=== PATIENT | male | born 1960 | race Caucasian/White ===

== ENCOUNTER 2018-04-24 15:51 | Emergency (ER) | payer SELFPAY ==
[2018-04-24 16:30] LABS: BASO % 0.4 % (0-6); EOS % 3.4 % (0-6); GRAN % 70.8 % (47-80); HEMATOCRIT 45.8 % (42.0-52.0); HEMOGLOBIN 15.5 gm/dl (14.0-18.0); LYMPH % 16.8 % (16-45); MEAN CELL VOLUME 86.4 fl (81-97); MEAN CORPUSCULAR HEMOGLOBIN 29.2 pg (27-33); MEAN CORPUSCULAR HGB CONC 33.8 g/dl (32-36); MONO % 8.6 % (0-9); PLATELET COUNT 366 K/uL (130-400); RED CELL DISTRIBUTION WIDTH 13.2 % (11.5-14.5)
[2018-04-24 16:38] LABS: BLOOD UREA NITROGEN 18 mg/dL (6-20)
[2018-04-24 16:39] LABS: CREATININE 0.8 mg/dL (0.7-1.2); EST GLOMERULAR FILTRATION RATE > 60 mL/min
[2018-04-24 16:41] LABS: GLUCOSE,RANDOM 146 mg/dL (74-109)
[2018-04-24 17:07] LABS: STREP A SCREEN NEGATIVE (NEGATIVE)
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
[2018-04-24 17:22] LABS: INFLUENZA A NEGATIVE (NEGATIVE); INFLUENZA B NEGATIVE (NEGATIVE)
[2018-04-24] MEDS ORDERED: AMOX TR/POT CLAV. 500MG/125MG TABLET PO ONE (19:06)
[2018-04-24] MEDS ORDERED: PREDNISONE 20 MG TAB PO ONE (19:07)
--- NOTE | 2018-04-25 13:54 | CT SCAN REPORT ---
EXAM: CT OF THE CHEST WITHOUT CONTRAST HISTORY: COUGH. TECHNIQUE: Noncontrast CT images of the chest were obtained. FINDINGS: The lungs are clear without evidence of infiltrate or soft tissue mass. There are calcified granulomas in the right upper lobe with calcified hilar mediastinal lymph nodes. There is no evidence of mediastinal adenopathy, cardiac enlargement, pericardial or pleural effusion. Images of the upper abdomen demonstrate granulomas in the liver and spleen. There is an exophytic cyst from the upper pole of the left kidney. IMPRESSION: ESSENTIALLY NEGATIVE CT SCAN OF THE CHEST. OLD GRANULOMATOUS DISEASE. JOB NUMBER: [id number] [facility]
--- NOTE | 2018-04-25 13:55 | RADIOLOGY REPORT ---
EXAM: CHEST, TWO VIEWS HISTORY: COUGH. TECHNIQUE: Two views of the chest were obtained. FINDINGS: The heart and pulmonary vessels are normal. No infiltrate or effusion is seen. There is a right upper lobe granuloma. IMPRESSION: NO ACUTE PROCESS. JOB NUMBER: [id number] [facility]TDD
== END 2018-04-24 19:24 | disposition home or self-care (01) ==
LOC: ER 15:51
DX: J45.40 Moderate persistent asthma, uncomplicated (principal); R07.9 Chest pain, unspecified; R05 Cough; M54.2 Cervicalgia; I10 Essential (primary) hypertension; Z87.891 Personal history of nicotine dependence
CPT/HCPCS: 71046; 71250; 80048; 85025; 85379; 87400; 87880; 99283; 99284; J7512

== ENCOUNTER 2018-11-15 14:28 | Emergency (ER) | payer BC ==
[2018-11-15] MEDS ORDERED: ASPIRIN 81 MG CHEWABLE TABLET PO ONE (14:40)
[2018-11-15] MEDS ORDERED: 0.9 % SODIUM CHLORIDE 1000ML 1,000 ML IV PRN (14:40)
[2018-11-15 14:48] LABS: ABSOLUTE NEUTROPHIL COUNT 5.18; BASO % 0.4 % (0-6); EOS % 6.1 % (0-6); GRAN % 67.4 % (47-80); HEMATOCRIT 42.1 % (42.0-52.0); HEMOGLOBIN 13.9 gm/dl (14.0-18.0); LYMPH % 17.8 % (16-45); MEAN CELL VOLUME 86.4 fl (81-97); MEAN CORPUSCULAR HEMOGLOBIN 28.5 pg (27-33); MEAN PLATELET VOLUME 8.4 fl (7.4-10.4); MONO % 8.3 % (0-9); PLATELET COUNT 338 K/uL (130-400); RED BLOOD COUNT 4.87 M/uL (4.40-5.70); RED CELL DISTRIBUTION WIDTH 13.1 % (11.5-14.5); WHITE BLOOD COUNT W/O DIFF 7.7 K/uL (4.2-12.2)
[2018-11-15 15:02] LABS: BLOOD UREA NITROGEN 12 mg/dL (6-20); CREATININE 0.7 mg/dL (0.7-1.2); EST GLOMERULAR FILTRATION RATE > 60 mL/min
[2018-11-15 15:05] LABS: GLUCOSE,RANDOM 109 mg/dL (74-109)
--- NOTE | 2018-11-15 16:42 | Emergency Department Record ---
History of Present Illness - General Chief Complaint: Chest Pain Stated Complaint: CHEST PAIN Time Seen by Provider: 11/15/18 14:40 Source: Patient, RN notes reviewed Mode of Arrival: Ambulatory - History of Present Illness Initial Comments: chest pain and left sided numbness Onset: Awoke with symptoms Pain Location: Left chest Pain Radiation: LUE, Jaw/teeth Quality: Tightness Improves With: Nothing Worsens With: Nothing Treatments Prior to Arrival: None - Related Data Previous Rx's Medication Instructions Recorded Albuterol Sulfate [Proair Hfa] 1 - 2 puff IH .EVERY 4-6 HOURS PRN 04/24/18 #1 inhaler Allergies Allergy/AdvReac Type Severity Reaction Status Date / Time No Known Drug Allergies Allergy Verified 11/15/18 14:35 Travel Screening - Travel/Exposure Within Last 30 Days Have you traveled within the last 30 days?: No Review of Systems Reviewed: No additional complaints except as noted below Constitutional: Reports: As per HPI. Denies: Chills, Fever, Malaise, Night sweats, Weakness, Weight change Eyes: Reports: As per HPI. Denies: Eye discharge, Eye pain, Photophobia, Vision change ENT: Reports: As per HPI. Denies: Congestion, Dental pain, Ear pain, Epistaxis, Hearing loss, Throat pain Respiratory: Reports: As per HPI. Denies: Cough, Dyspnea, Hemoptysis, Stridor, Wheezes Cardiovascular: Reports: As per HPI, Chest pain. Denies: Arrhythmia, Dyspnea on exertion, Edema, Murmurs, Orthopnea, Palpitations, Paroxysmal nocturnal dyspnea, Rheumatic Fever, Syncope Endocrine: Reports: As per HPI. Denies: Fatigue, Heat or cold intolerance, Polydipsia, Polyuria Gastrointestinal: Reports: As per HPI. Denies: Abdominal pain, Constipation, Diarrhea, Hematemesis, Hematochezia, Melena, Nausea, Vomiting Genitourinary: Reports: As per HPI. Denies: Dysuria, Frequency, Hematuria, Incontinence, Retention, Testicular pain, Testicular mass, Urgency Musculoskeletal: Reports: As per HPI. Denies: Arthralgia, Back pain, Gout, Joint swelling, Myalgia, Neck pain Skin: Reports: As per HPI. Denies: Bruising, Change in color, Change in hair/nails, Lesions, Pruritus, Rash Neurological: Reports: As per HPI, Numbness (left arm). Denies: Abnormal gait, Confusion, Headache, Paresthesias, Seizure, Tingling, Tremors, Vertigo, Weakness Psychiatric: Reports: As per HPI. Denies: Anxiety, Auditory hallucinations, Depression, Homicidal thoughts, Suicidal thoughts, Visual hallucinations Hematological/Lymphatic: Reports: As per HPI. Denies: Anemia, Blood Clots, Easy bleeding, Easy bruising, Swollen glands Past Medical History - SOCIAL HISTORY Smoking Status: Former smoker Alcohol Use: None Drug Use: None - RESPIRATORY Hx Respiratory Disorders: Yes Hx Bronchitis: Yes - CARDIOVASCULAR Hx Cardio Disorders: Yes Hx Chest Pain: Yes Hx Hypertension: Yes - NEURO Hx Neuro Disorders: Yes Hx Dizziness: Yes - GI Hx GI Disorders: No - Hx Genitourinary Disorders: No - ENDOCRINE Hx Endocrine Disorders: No Hx Diabetes: No Hx Thyroid Disease: No - MUSCULOSKELETAL Hx Musculoskeletal Disorders: Yes Hx Arthritis: Yes - PSYCH Hx Psych Problems: No - HEMATOLOGY/ONCOLOGY Hx Hematology/Oncology Disorders: No Family Medical History Any Significant Family History?: No Family Hx Comment (NOT TO BE USED IN PLACE OF ITEMS BELOW): pt denies clotting issues with family Physical Exam - General General Appearance: Alert, Oriented x3, Cooperative, No acute distress - Head Head exam: Normal inspection - Eye Eye exam: Normal appearance, PERRL Pupils: Normal accommodation - ENT ENT exam: Normal exam, Mucous membranes moist, Normal external ear exam, Normal orophraynx, TM's normal bilaterally Ear exam: Normal external inspection. negative: External canal tenderness Nasal Exam: Normal inspection. negative: Discharge, Sinus tenderness Mouth exam: Normal external inspection, Tongue normal Teeth exam: Normal inspection. negative: Dental caries Throat exam: Normal inspection. negative: Tonsillar erythema, Tonsillar exudate - Neck Neck exam: Normal inspection, Full ROM. negative: Tenderness - Respiratory Respiratory exam: Normal lung sounds bilaterally. negative: Respiratory distress - Cardiovascular Cardiovascular Exam: Regular rate, Normal rhythm, Normal heart sounds - GI/Abdominal GI/Abdominal exam: Soft, Normal bowel sounds. negative: Tenderness - Rectal Rectal exam: Deferred - exam: Deferred - Extremities Extremities exam: Normal inspection, Full ROM, Normal capillary refill. negative: Tenderness - Back Back exam: Reports: Normal inspection, Full ROM. 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 11/15/18 17:16 Reevaluation #2: numbness is gone in the arm and some residual numbness in the fingers 11/15/18 17:22 Reevaluation #3: discuussed case with Dr Robles and he said he would see him at 9 am at his office in [place] to do a stress test [address] [facility], phone number [phone]. Return to ED more problems before than. 11/15/18 17:42 Reevaluation #4: second trop neg 11/15/18 17:53 Medical Decision Making - Data Complexity MDM Data: Labs Ordered and/or Reviewed (trop t neg first one ), X-Ray Ordered and/or Reviewed (CThead negative), EKG Ordered and/or Reviewed (EKG NSR ST up I,AVL T wave down in #, avf) - Lab Data Result diagrams: 11/15/18 14:30 11/15/18 14:30 Lab Results 11/15/18 11/15/18 11/15/18 Range/Units 14:30 14:30 14:30 WBC 7.7 (4.2-12.2) K/uL RBC 4.87 (4.40-5.70) M/uL Hgb 13.9 L (14.0-18.0) gm/dl Hct 42.1 (42.0-52.0) % MCV 86.4 (81-97) fl MCH 28.5 (27-33) pg MCHC 33.0 (32-36) g/dl RDW 13.1 (11.5-14.5) % Plt Count 338 (130-400) K/uL MPV 8.4 (7.4-10.4) fl Gran % 67.4 (47-80) % Lymphocytes % 17.8 (16-45) % Monocytes % 8.3 (0-9) % Eosinophils % 6.1 H (0-6) % Basophils % 0.4 (0-6) % Absolute Neutrophils 5.18 APTT 26.2 (24.5-39.1) SECONDS Sodium 141 (136-145) mmol/L Potassium 4.2 (3.4-4.5) mmol/L Chloride 103 (98-107) mmol/L Carbon Dioxide 26.0 (22-29) mmol/L Anion Gap 12.0 (7-16) BUN 12 (6-20) mg/dL Creatinine 0.7 (0.7-1.2) mg/dL Estimated GFR > 60 mL/min Random Glucose 109 (74-109) mg/dL Calcium 9.5 (8.6-10.0) mg/dL Troponin T < 0.010 (0-0.010) ng/mL Disposition Clinical Impression: Chest pain Qualifiers: Chest pain type: chest pain due to myocardial ischemia Ischemic chest pain type: unspecified angina pectoris type Qualified Code(s): I25.9 - Chronic ischemic heart disease, unspecified Disposition: Against Medical Advice Condition: (1) Good Instructions: Chest Pain (ED) Additional Instructions: Dr. Dacosta with [facility] [address] [place] [address] #[phone] take an aspirin a day Forms: Patient Portal Access Time of Disposition: 17:52 Quality - Quality Measures Quality Measures: N/A - Blood Pressure Screening Does Patient Have Any of the Following: No Blood Pressure Classification: Hypertensive Reading Systolic Measurement: 150 Diastolic Measurement: 78 Screening for High Blood Pressure: < First Hypertensive BP, F/U Documented > [G8950] First Hypertensive Follow-up Interventions: Referral to alternative/primary care provider.
--- NOTE | 2018-11-16 21:49 | RADIOLOGY REPORT ---
EXAM: CHEST 2 VIEWS HISTORY: NUMBNESS LEFT SIDE OF BODY AND CHEST PAIN. TECHNIQUE: PA and lateral views. COMPARISON: Two-view chest 04/24/18. FINDINGS: Heart size stable, within normal limits. No definite acute infiltrate is seen and no definite pleural effusion or pneumothorax evident. Elevation of the right hemidiaphragm anteriorly, as before. Small granuloma right lower lung. Post-op changes right shoulder. Old fracture deformity right clavicle and also posteriorly in the right eighth rib. IMPRESSION: 1. ELEVATION OF THE RIGHT HEMIDIAPHRAGM ANTERIORLY, BEFORE. 2. NO DEFINITE ACUTE INFILTRATE SEEN. 3. SMALL GRANULOMA ON THE RIGHT, BEFORE. JOB NUMBER: [id number] MTDD
--- NOTE | 2018-11-16 21:52 | CT SCAN REPORT ---
EXAM: CT SCAN HEAD WO CONTRAST HISTORY: NUMBNESS LEFT SIDE OF BODY AND LEFT SIDE WEAKNESS. TECHNIQUE: Axial CT scan of the head performed without IV contrast. COMPARISON: None. FINDINGS: No definite acute intracranial hemorrhage identified. No focal mass effect or midline shift evident. No definite acute infarct or intracranial mass lesion seen. No depressed calvarial fracture evident. IMPRESSION: EMERGENCY NONCONTRAST HEAD CT APPEARS ESSENTIALLY NEGATIVE WITH NO DEFINITE ACUTE INTRACRANIAL HEMORRHAGE OR FOCAL MASS EFFECT IDENTIFIED. JOB NUMBER: [id number] MTDD
== END 2018-11-15 18:06 | disposition left against medical advice (07) ==
LOC: ER 14:28
DX: I25.9 Chronic ischemic heart disease, unspecified (principal); R20.0 Anesthesia of skin; R53.1 Weakness; I10 Essential (primary) hypertension; Z87.891 Personal history of nicotine dependence
CPT/HCPCS: 70450; 71046; 80048; 84484; 85025; 85730; 93005; 93010; 99285